=== PATIENT | female | born 1990 | race Caucasian/White ===

== ENCOUNTER 2024-09-24 19:01 | Emergency (ER) | payer BC, SELFPAY ==
[2024-09-24 19:05] VITALS: BP 168/96; PULSE 101; RESP 16; TEMP 36.9; O2SAT 100; BMI 28.0
--- NOTE | 2024-09-24 19:20 | US_ITS ---
PROCEDURE: TRANSVAGINAL W/PREG US 09/24/2024 REASON FOR EXAM: BLEEDING TECHNIQUE: Transvaginal COMPARISON: None FINDINGS: Comments: Number of Gestational Sacs: 1 Gestational Sac Shape: Normal Number of Fetuses: 1 Heart Rate: 157 (average) Survey of Visible Anatomic Structures: Grossly unremarkable for gestational age. Nasal Bones: Yolk Sac: Not visualized Placenta: Presently not well-visualized small adjacent hypoechoic area consistent with a subchorionic hemorrhage (implantation bleed). Amniotic Fluid Volume: Subjectively normal for gestational age. Uterine Abnormalities: Maternal uterus is unremarkable. The uterus is retroverted. Ovaries / Adnexa: The maternal right ovary is unremarkable. The left ovary is not seen. DIMENSIONS: Parameter Measurement / EGA [place] Rump Length: 69 mm/13 weeks 1 day Gestational Sac: 71 mm/13 weeks 5 days Yolk Sac: / ESTIMATED GESTATIONAL AGE: By Ultrasound: 13 weeks 3 days By LMP: 12 weeks 5 days ESTIMATED DATE OF DELIVERY: By Ultrasound: 03/29/2025 By LMP: 04/03/2025 US/Transvaginal w/Preg US IMPRESSION: UNREMARKABLE FIRST TRIMESTER ULTRASOUND. Reading Location: [id number]
--- NOTE | 2024-09-24 19:21 | ED.VIS.FEGU ---
HPI <CONG Hawk - Last Filed: 09/24/24 22:09> HPI - Female History of Present Illness Chief Complaint: Vag Bld, Preg Narrative Narrative: 34-year-old female G3, P2 states she is approximately 13 weeks and was driving and felt a gush of vaginal bleeding approximately 20 minutes prior to arrival. She has no abdominal pain. No recent spotting or bleeding issues. She is traveling from work and lives in [facility] 2 hours from here. She is seeing her SALES ACCOUNT REPRESENTATIVE there and had an ultrasound at 9 weeks confirming IUP and was seen in the office last week and had a normal heartbeat with Doppler. She has no history of miscarriage in the past. No abdominal surgeries. PFSH <CONG Hawk - Last Filed: 09/24/24 22:09> PFSH Home Medications ?Medication ?Instructions ?Recorded ?Last Taken ?Type NK 09/24/24 Unknown History Allergy/AdvReac Type Severity Reaction Status Date / Time No Known Allergies Allergy Verified 09/24/24 19:03 Social History Smoking Status: Never smoker ROS <CONG Hawk - Last Filed: 09/24/24 22:09> ROS ED ROS Narrative Constitutional: Negative for fever, chills, malaise. Respiratory: Negative for shortness of breath. GI: Negative for abdominal pain, nausea, vomiting. EXAM <CONG Hawk - Last Filed: 09/24/24 22:09> Physical Exam Narrative Exam Narrative: CONST: Patient sitting in no acute distress. EYES: Normal inspection. NECK: Normal inspection. RESP: No respiratory distress, CTAB. CVS: Regular rate and rhythm, no murmur, no gallop. ABD: Soft and nontender, no guarding or rebound, nondistended. : Normal external genitalia. Vaginal vault filled with thin bright red blood. No clots. Unable to visualize the cervix. SKIN: Color normal, no rash, warm, dry, intact. EXTREMITIES: Normal appearance, no pedal edema. NEURO: Alert and answering questions appropriately. PSYCH: Normal affect. Const Vital Signs: 09/24/24 19:05 09/24/24 20:24 09/24/24 20:53 Temperature 98.5 F Temperature Source Oral Pulse Rate 101 H 94 85 Respiratory Rate 16 17 12 Blood Pressure 168/96 H Blood Pressure Mean 120 Pulse Ox 100 94 Oxygen Delivery Method Room Air Room Air 09/24/24 21:00 09/24/24 21:15 09/24/24 21:30 Temperature Temperature Source Pulse Rate 81 79 74 Respiratory Rate 11 L 18 14 Blood Pressure Blood Pressure Mean Pulse Ox Oxygen Delivery Method <Dr. King Long DO - Last Filed: 09/24/24 22:17> Physical Exam Const Vital Signs: 09/24/24 19:05 09/24/24 20:24 09/24/24 20:53 Temperature 98.5 F Temperature Source Oral Pulse Rate 101 H 94 85 Respiratory Rate 16 17 12 Blood Pressure 168/96 H Blood Pressure Mean 120 Pulse Ox 100 94 Oxygen Delivery Method Room Air Room Air 09/24/24 21:00 09/24/24 21:15 09/24/24 21:30 Temperature Temperature Source Pulse Rate 81 79 74 Respiratory Rate 11 L 18 14 Blood Pressure Blood Pressure Mean Pulse Ox Oxygen Delivery Method MDM <CONG Hawk - Last Filed: 09/24/24 22:09> [facility] MDM Narrative Medical decision making narrative: Consults: SALES ACCOUNT REPRESENTATIVE Differential includes but not limited to complete miscarriage, threatened miscarriage, subchorionic hemorrhage, anemia 34-year-old female G3, P2 approximately 13 weeks presents with heavy vaginal bleeding without abdominal pain. She appears well and nontoxic. Hemodynamically stable. Abdomen soft and nontender. On pelvic exam the vaginal vault is full of bright red blood approximately 10 cc resell. I cannot visualize her cervix. WBC is 12.4. Hemoglobin 13.6. Chemistry unremarkable. hCG quant is 65,902. Ultrasound shows a 13-week, 3-day with a heart rate of 157 bpm. There is a small subchorionic hemorrhage. Since she is out of town I discussed the case with our on-call SALES ACCOUNT REPRESENTATIVE Dr. Jiménez as well who states she is appropriate for outpatient management since she is hemodynamically stable and has a normal hemoglobin. She is positive so does not need RhoGAM. I was able to reach an on-call SALES ACCOUNT REPRESENTATIVE in the [facility] system the patient goes to and he will send a message to their office so she can follow-up closely this week. Patient was provided a copy of all her testing and was given return precautions and instructed to do pelvic rest. She was discharged in stable condition. Lab Data Attestation: I reviewed the patient's lab results. Labs: Laboratory Results - last 24 hr 09/24/24 09/24/24 19:07 20:15 WBC 12.4 H RBC 4.20 Hgb 13.6 Hct 39.0 MCV 92.9 MCH 32.4 H MCHC 34.9 RDW Std Deviation 40.3 RDW Coeff of Ros 11.9 Plt Count 313 MPV 10.3 Immature Gran % (Auto) 0.600 Neut % (Auto) 66.1 Lymph % (Auto) 26.9 [place] % (Auto) 4.9 Eos % (Auto) 1.2 Baso % (Auto) 0.3 Absolute Neuts (auto) 8.2 H Absolute Lymphs (auto) 3.33 Nucleated RBC % 0 Sodium 138 Potassium 3.6 Chloride 103 Carbon Dioxide 22.2 Anion Gap 13 BUN 16 Creatinine 0.65 L Estim Creat Clear Calc 131.24 Est GFR (MDRD) Non-Af 117 BUN/Creatinine Ratio 25.1 H Glucose 106 H Calcium 9.4 HCG, Quant 68367 H Urine Color Red Urine Clarity Cloudy Urine pH 6.5 Ur Specific [place] 1.015 Urine Protein 500 H Urine Glucose (UA) Normal Urine Ketones 5 H Urine Occult Blood 250 H Urine Nitrite Negative Urine Bilirubin Negative Urine Urobilinogen Normal Ur Leukocyte Esterase Negative Urine RBC > 100 SEEN Urine WBC 5-10 SEEN Ur Squamous Epith Cells 0 SEEN Urine Bacteria 2+ Urine Mucus 0 SEEN Blood Type O POSITIVE Radiography Diagnostic Testing: Clinical Impression(s) from Imaging Studies Obstetrics Ultrasound 09/24/24 19:20 IMPRESSION: UNREMARKABLE FIRST TRIMESTER ULTRASOUND. Reading Location: [id number] <Dr. King Long, DO - Last Filed: 09/24/24 22:17> [facility] History & Record Review Discussion w/independent historian: Patient Lab Data Labs: Laboratory Results - last 24 hr 09/24/24 09/24/24 19:07 20:15 WBC 12.4 H RBC 4.20 Hgb 13.6 Hct 39.0 MCV 92.9 MCH 32.4 H MCHC 34.9 RDW Std Deviation 40.3 RDW Coeff of Ros 11.9 Plt Count 313 MPV 10.3 Immature Gran % (Auto) 0.600 Neut % (Auto) 66.1 Lymph % (Auto) 26.9 [place] % (Auto) 4.9 Eos % (Auto) 1.2 Baso % (Auto) 0.3 Absolute Neuts (auto) 8.2 H Absolute Lymphs (auto) 3.33 Nucleated RBC % 0 Sodium 138 Potassium 3.6 Chloride 103 Carbon Dioxide 22.2 Anion Gap 13 BUN 16 Creatinine 0.65 L Estim Creat Clear Calc 131.24 Est GFR (MDRD) Non-Af 117 BUN/Creatinine Ratio 25.1 H Glucose 106 H Calcium 9.4 HCG, Quant 82604 H Urine Color Red Urine Clarity Cloudy Urine pH 6.5 Ur Specific [place] 1.015 Urine Protein 500 H Urine Glucose (UA) Normal Urine Ketones 5 H Urine Occult Blood 250 H Urine Nitrite Negative Urine Bilirubin Negative Urine Urobilinogen Normal Ur Leukocyte Esterase Negative Urine RBC > 100 SEEN Urine WBC 5-10 SEEN Ur Squamous Epith Cells 0 SEEN Urine Bacteria 2+ Urine Mucus 0 SEEN Blood Type O POSITIVE Radiography Diagnostic Testing: Clinical Impression(s) from Imaging Studies Obstetrics Ultrasound 09/24/24 19:20 IMPRESSION: UNREMARKABLE FIRST TRIMESTER ULTRASOUND. Reading Location: [id number] Treatment and Re-Evaluation Narrative: I have personally performed a face to face assessment of the patient and have reviewed the TIM Note. I performed a substantive portion of the visit including all aspects of the following. My peterson findings include: History is 13-week female presenting to the emergency room with vaginal bleeding. Patient denies any pain. She is from out of town and was passing through when she felt a gush of blood. She notes clots. Her SALES ACCOUNT REPRESENTATIVE is in [facility]. She states she had an ultrasound last week and everything seemed appropriate. Exam is please see pelvic examination performed by physician assistant auditor Aimee. Patient is alert no acute distress. She is not hypotensive or tachycardic. Medical Decison Making basic blood work is obtained. She is Rh+. Pelvic ultrasound demonstrates subchorionic bleed. Single live intrauterine measuring appropriate dates. Spoke with local OB and attempted phone call to her OB in [facility]. We are able to make contact and they will have the patient follow-up with them in the office. Patient is comfortable with this plan. Discharge Plan Triage Chief Complaint: Vag Bld, Preg ED Midlevel Provider: Aimee Marie ED Provider: King Long Dx/Rx/DC Orders Clinical Impression: Subchorionic hemorrhage, Threatened miscarriage Instructions: : Subchorionic Hematoma, Bleeding During Early Prescriptions: No Action NK Primary Care Provider: AGUILA VILLALOBOS Referrals: AGUILA VILLALOBOS [Other] Activity Restrictions/Additional Instructions: The ultrasound shows a subchorionic hematoma which is a collection of blood formed between the uterus wall and the membranes that surround the baby. You may continue to bleed over the next few hours but it should slow down. If it is not slowing down or worsening or you are feeling more than 1 pad an hour you should go back to the emergency room. The ultrasound showed a heart rate of 157 bpm. Follow-up with your SALES ACCOUNT REPRESENTATIVE tomorrow. You need to be on pelvic rest which means do not insert anything into the vagina such as tampons and do not have sexual intercourse. Print Language: Portuguese Disposition Disposition: Home, Self Care
[2024-09-24 19:25] LABS: Absolute Lymphocyte Count 3.33 X10^3/uL (0.83-4.51); Absolute Neutrophil Count 8.2 X10^3/uL (2.0-7.7); Basophil# 0.04 X10^3/uL; Basophil% 0.3 % (0-1); Eosinophil# 0.15 X10^3/uL; Eosinophils% 1.2 % (0-5); Hemoglobin 13.6 g/dL (12.0-15.0); Lymphocyte # 3.33 X10^3/ul (0.83-4.51); Lymphocyte % 26.9 % (19-41); Mean Corp Hgb Conc 34.9 g/dL (32-36); Mean Corpuscular Hgb 32.4 pg (27.0-32.0); Mean Corpuscular Volume 92.9 fL (81-99); Mean Platelet Vol. 10.3 fl (6.2-12.0); Monocyte% 4.9 % (0-10); NRBC Flagged by Analyzer 0 % (0-5); Neutrophil # 8.16 X10^3/uL (2.7-7.7); Neutrophil % 66.1 % (47-70); Platelet Count 313 K/mm3 (150-450); RBC Distribution Width CV 11.9 % (11.6-14.6); RBC Distribution Width SD 40.3 fl (35.1-43.9); White Blood Count 12.4 K/mm3 (4.4-11.0)
[2024-09-24 19:50] LABS: Anion Gap 13 (5-15); BUN 16 mg/dL (4-19); BUN/Creat Ratio 25.1 RATIO (10-20); Calcium,Total 9.4 mg/dL (7.6-11.0); Carbon Dioxide 22.2 mmol/L (21.0-32.0); Chloride 103 mmol/L (98-108); Creatinine, Serum 0.65 mg/dL (0.70-1.20); EST Glomerular Filtration Rate 117 (>60); Estimated Creatinine Clearance 131.24 ml/min (50-250); Glucose 106 mg/dL (70-99); Potassium 3.6 mmol/L (3.3-5.1); Sodium Level 138 mmol/L (133-145)
[2024-09-24 20:16] LABS: hCG Titer Quant., Serum 65902 mIU/mL (<9 non-preg)
[2024-09-24 20:24] VITALS: PULSE 94; RESP 17; O2SAT 94
[2024-09-24 20:26] LABS: Mucous, Urine 0 SEEN /hpf (<or=2+); Squamous Epithelial Cells - UA 0 SEEN /hpf (5-10)
[2024-09-24 20:27] LABS: Color, Urine Red (Yellow); Glucose, Dipstick Normal (Normal); Ketone-Dipstick 5 mg/dl (Negative); Leukocyte Esterase-Dipstick Negative /ul (Negative); Nitrite-Dipstick Negative (Negative); Occult Blood-Urine 250 /ul (Negative); Protein-Dipstick 500 mg/dl (Negative); Specific Gravity, Urine 1.015 (1.002-1.030); Urine Bilirubin Dipstick Negative (Negative); Urine Clarity Cloudy (Clear); Urine Urobilinogen Normal (Normal); Urine pH 6.5 (5.0 - 8.0)
[2024-09-24 20:44] LABS: Bacteria 2+ /hpf (None Seen); Red Blood Cells-Urine > 100 SEEN /hpf (0-5); White Blood Cells 5-10 SEEN /hpf (0-5)
[2024-09-24 20:53] VITALS: PULSE 85; RESP 12
[2024-09-24 21:00] VITALS: PULSE 81; RESP 11
[2024-09-24 21:15] VITALS: PULSE 79; RESP 18
[2024-09-24 21:30] VITALS: PULSE 74; RESP 14
== END 2024-09-24 22:27 | disposition home or self-care (01) ==
PROVIDERS: Physician Assistant; Emergency Provider Emergency Medicine; Visit Provider Emergency Medicine
DX: O20.0 Threatened abortion (principal); Z3A.13 13 weeks gestation of pregnancy
CPT/HCPCS: 76817; 80048; 81001; 84702; 85025; 86900; 86901; 99282; A4216